=== PATIENT | female | born 1995 | race Caucasian/White ===

== ENCOUNTER 2021-04-05 21:19 | Emergency (ER) | payer BC ==
--- NOTE | 2021-04-05 21:51 | EDM.PDOC ---
ED HPI GENERAL MEDICAL PROBLEM - General Chief Complaint: Headache Stated Complaint: HEADACHE Time Seen by Provider: 04/05/21 21:25 Source of Information: Reports: Patient History Limitations: Reports: No Limitations - History of Present Illness INITIAL COMMENTS - FREE TEXT/NARRATIVE: 25-year-old female presents to the ED complaining of dizzy lightheadedness with headache. Patient had a gradual onset starting on Tuesday of a headache located in the frontal region, originally center of the forehead today slightly left of midline above the left eye. Patient states the pain was off and on over the last 3 days. Patient describes the pain as "somebody taking my head and slamming a door into it ". Nothing is been palliative including ibuprofen. 6/10 on the pain scale. Patient describes the dizziness lightheadedness as if she was drunk. With a touch of vertigo on Tuesday. Patient positive for: Increased life stress including possible new job possible move. Patient denies: Chest pain, shortness of breath, near syncope/syncope, constipation/diarrhea, black tarry stool, blood on the stool, changes to urine color smell frequency, blurred vision, difficulty swallowing trauma, red swollen joints, or weakness. Patient is on her last day of her cycle denies any chance of . Head Pain Score (Numeric/FACES): 6 - Related Data Allergies Allergy/AdvReac Type Severity Reaction Status Date / Time No Known Allergies Allergy Verified 04/05/21 21:20 Home Meds: Home Meds NK [No Known Home Meds] 04/05/21 [History] Past Medical History - Past Health History Medical/Surgical History: Denies Medical/Surgical History ED ROS GENERAL - Review of Systems Review Of Systems: Comprehensive ROS is negative, except as noted in HPI. ED EXAM, GENERAL - Physical Exam Exam: See Below Free Text/Narrative:: 25-year-old female presents the ED complaining of headache and dizziness lightheadedness. ABC intact. No apparent distress. No obvious trauma. Speaking in full sentences. Alert and oriented x3, GCS 456. Exam Limited By: No Limitations General Appearance: Alert, WD/WN, No Apparent Distress Eye Exam: Bilateral Eye: EOMI, PERRL (Knock his boat out) Ears: Normal External Exam, Normal Canal, Hearing Grossly Normal, Normal TMs Ear Exam: Bilateral Ear: Auricle Normal, Canal Normal, TM normal Nose: Normal Inspection, Normal Mucosa, No Blood Throat/Mouth: Normal Inspection, Normal Lips, Normal Teeth, Normal Gums, Normal Oropharynx, Normal Voice, No Airway Compromise Head: Atraumatic, Normocephalic. No: Facial Swelling, Facial Tenderness, Sinus Tenderness Neck: Normal Inspection, Supple, Non-Tender, Full Range of Motion. No: Lymphadenopathy (R), Lymphadenopathy (L), Thyromegaly Respiratory/Chest: No Respiratory Distress, Lungs Clear, Normal Breath Sounds, No Accessory Muscle Use, Chest Non-Tender Cardiovascular: Normal Peripheral Pulses, Regular Rate, Rhythm, No Edema, No Gallop, No JVD, No Murmur, No Rub Peripheral Pulses: 2+: Posterior Tibial (L), Posterior Tibial (R), 3+: Radial (L), Radial (R) GI/Abdominal: Normal Bowel Sounds, Soft, Non-Tender, No Organomegaly, No Distention, No Abnormal Bruit, No Mass (Female) Exam: Deferred Rectal (Female) Exam: Deferred Back Exam: Normal Inspection, Full Range of Motion. No: CVA Tenderness (R), CVA Tenderness (L), Muscle Spasm, Paraspinal Tenderness, Vertebral Tenderness Extremities: Normal Inspection, Normal Range of Motion, Non-Tender, Normal Capillary Refill, No Pedal Edema Neurological: Alert, Oriented, CN II-XII Intact, Normal Cognition, Normal Gait, Normal Reflexes, No Motor/Sensory Deficits, Other (DTRs within normal limits) Psychiatric: Normal Affect, Normal Mood Skin Exam: Warm, Dry, Intact, Normal Color, No Rash Lymphatic: No Adenopathy #1 Interpretation EKG Date: 04/05/21 (Normal sinus rhythm, without ectopy, no ST elevation or depression, this is not a STEMI, biphasic T waves in V1, flat to slightly inverted T waves in lead III bundle branch block and aVL) Course - Vital Signs Last Recorded V/S: Last Vital Signs Temp 98.7 F 04/05/21 21:19 Pulse 107 H 04/05/21 21:19 Resp 16 04/05/21 21:19 BP 153/103 H 04/05/21 21:19 Pulse Ox 99 04/05/21 21:19 - Orders/Labs/Meds Orders: Active Orders 24 hr Category Date Time Status Isolation [COMM] Routine Oth 04/05/21 21:32 Active Peripheral IV Insertion Adult [OM.PC] Routine Oth 04/05/21 21:58 Ordered EKG 12 Lead [EK] Routine Ther 04/05/21 21:42 Ordered Labs: Laboratory Tests 04/05/21 04/05/21 04/05/21 Range/Units 21:23 21:23 21:23 WBC 7.9 (4.0-11.0) K/uL RBC 4.92 (3.80-5.80) M/uL Hgb 13.3 (11.5-16.5) g/dL Hct 39.7 (37.0-47.0) % MCV 81 (76-96) fL MCH 27.0 (27.0-32.0) pg MCHC 33.5 (31.0-35.0) g/dL RDW 13.3 (11.0-16.0) % Plt Count 332 (150-500) K/uL MPV 10.4 H (6.0-10.0) fL Neut % (Auto) 57.2 (45.0-70.0) % Lymph % (Auto) 32.2 (20.0-40.0) % Dickson % (Auto) 9.0 (3.0-10.0) % Eos % (Auto) 1.1 (1.0-5.0) % Baso % (Auto) 0.5 (0.0-0.5) % Neut # (Auto) 4.54 (2.00-7.50) K/uL Lymph # (Auto) 2.55 (1.50-4.00) K/uL Dickson # (Auto) 0.71 (0.20-0.80) K/uL Eos # (Auto) 0.09 (0.04-0.40) K/uL Baso # (Auto) 0.04 (0.02-0.10) K/uL Sodium 141 (136-145) mmol/L Potassium 3.8 (3.5-5.1) mmol/L Chloride 103 (98-107) mmol/L Carbon Dioxide 28.6 (21.0-32.0) mmol/L Anion Gap 13.2 (5.0-15.0) mmol/L BUN 11 (8-26) mg/dL Creatinine 0.76 (0.55-1.02) mg/dL Est Cr Clr Drug Dosing 111.95 mL/min Estimated GFR (MDRD) > 60 (>60) MLS/MIN BUN/Creatinine Ratio 14.5 (6-25) Glucose 96 (74-100) mg/dL Calcium 9.2 (8.5-10.1) mg/dL TSH, Ultra Sensitive (0.358-3.740) uIU/mL Urine HCG, Qual (NEGATIVE) SARS CoV-2 RNA Rapid MANJIT Negative 04/05/21 04/05/21 Range/Units 21:23 22:00 WBC (4.0-11.0) K/uL RBC (3.80-5.80) M/uL Hgb (11.5-16.5) g/dL Hct (37.0-47.0) % MCV (76-96) fL MCH (27.0-32.0) pg MCHC (31.0-35.0) g/dL RDW (11.0-16.0) % Plt Count (150-500) K/uL MPV (6.0-10.0) fL Neut % (Auto) (45.0-70.0) % Lymph % (Auto) (20.0-40.0) % Dickson % (Auto) (3.0-10.0) % Eos % (Auto) (1.0-5.0) % Baso % (Auto) (0.0-0.5) % Neut # (Auto) (2.00-7.50) K/uL Lymph # (Auto) (1.50-4.00) K/uL Dickson # (Auto) (0.20-0.80) K/uL Eos # (Auto) (0.04-0.40) K/uL Baso # (Auto) (0.02-0.10) K/uL Sodium (136-145) mmol/L Potassium (3.5-5.1) mmol/L Chloride (98-107) mmol/L Carbon Dioxide (21.0-32.0) mmol/L Anion Gap (5.0-15.0) mmol/L BUN (8-26) mg/dL Creatinine (0.55-1.02) mg/dL Est Cr Clr Drug Dosing mL/min Estimated GFR (MDRD) (>60) MLS/MIN BUN/Creatinine Ratio (6-25) Glucose (74-100) mg/dL Calcium (8.5-10.1) mg/dL TSH, Ultra Sensitive 0.926 (0.358-3.740) uIU/mL Urine HCG, Qual Negative (NEGATIVE) SARS CoV-2 RNA Rapid MANJIT Meds: Medications Discontinued Medications Generic Name Dose Route Start Last Admin Trade Name Freq PRN Reason Stop Dose Admin Diphenhydramine HCl Confirm 04/05/21 23:17 04/05/21 23:14 Diphenhydramine 50 Mg/Ml Sdv Administered 04/05/21 23:18 Not Given Dose 50 mg .ROUTE .STK-MED ONE Diphenhydramine HCl 25 mg 04/05/21 23:13 04/05/21 23:15 Diphenhydramine 50 Mg/Ml Sdv IVPUSH 04/05/21 23:14 25 mg ONETIME ONE Administration Lactated Ringer's 1,000 mls @ 999 mls/hr 04/05/21 21:58 04/05/21 22:18 Ringers, Lactated IV 04/05/21 22:58 999 mls/hr BOLUS ONE Administration Ketorolac Tromethamine 30 mg 04/05/21 21:59 04/05/21 22:18 Ketorolac 30 Mg/Ml Sdv IVPUSH 04/05/21 22:00 30 mg ONETIME ONE Administration Ketorolac Tromethamine Confirm 04/05/21 22:26 04/05/21 22:39 Ketorolac 30 Mg/Ml Sdv Administered 04/05/21 22:27 Not Given Dose 30 mg .ROUTE .STK-MED ONE Prochlorperazine Edisylate Confirm 04/05/21 23:17 04/05/21 23:14 Prochlorperazine 10 Mg/2 Ml Sdv Administered 04/05/21 23:18 Not Given Dose 10 mg .ROUTE .STK-MED ONE Prochlorperazine Edisylate 10 mg 04/05/21 23:16 04/05/21 23:20 Prochlorperazine 10 Mg/2 Ml Sdv IVPUSH 04/05/21 23:17 10 mg ONETIME ONE Administration Sodium Chloride 10 ml 04/05/21 21:58 Sodium Chloride 0.9% 10 Ml Syringe FLUSH ASDIRECTED PRN Keep Vein Open Departure - Departure Time of Disposition: 23:45 Disposition: Home, Self-Care 01 Condition: Good Clinical Impression: Migraine, Tension-type headache - Discharge Information *PRESCRIPTION DRUG MONITORING PROGRAM REVIEWED*: No *COPY OF PRESCRIPTION DRUG MONITORING REPORT IN PATIENT DEXTER: No (Finger or IO no laxity needed the point of care carbon monoxide nobody did the other deformity) Instructions: Migraine Headache, [id number], Dehydration, Adult, [id number] Referrals: PCP,None [Primary Care Provider] - Forms: ED Department Discharge Additional Instructions: Stay hydrated with water or Pedialyte. Take Tylenol as needed for headache discomfort. Return to the emergency room if symptoms progress and follow up with primary care. Sepsis Event Note (ED) - Evaluation Sepsis Screening Result: No Definite Risk - Focused Exam Vital Signs: Vital Signs Temp Pulse Resp BP Pulse Ox 04/05/21 21:19 98.7 F 107 H 16 153/103 H 99 - Problem List & Annotations (1) Migraine SNOMED Code(s): 17396104 Code(s): G43.909 - MIGRAINE, UNSP, NOT INTRACTABLE, WITHOUT STATUS MIGRAINOSUS Status: Acute (2) Tension-type headache SNOMED Code(s): 725453815 Code(s): G44.209 - TENSION-TYPE HEADACHE, UNSPECIFIED, NOT INTRACTABLE Status: Acute - Problem List Review Problem List Initiated/Reviewed/Updated: Yes - My Orders Last 24 Hours: My Active Orders 04/05/21 21:32 Isolation [COMM] Routine 04/05/21 21:42 EKG 12 Lead [EK] Routine 04/05/21 21:58 Peripheral IV Insertion Adult [OM.PC] Routine - Assessment/Plan Last 24 Hours: My Active Orders 04/05/21 21:32 Isolation [COMM] Routine 04/05/21 21:42 EKG 12 Lead [EK] Routine 04/05/21 21:58 Peripheral IV Insertion Adult [OM.PC] Routine Assessment:: 1. Headache 2. Vertigo/dizzy lightheaded 25-year-old female who presents with a headache. I considered a broad differential diagnosis for this patient including tension, migraine, analgesic rebound, and occipital neuralgia, etc. Other less common but serious causes considered included meningitis, encephalitis, subarachnoid bleed, stroke, tumor, etc. Patient has no signs of serious headache etiologies at this point. No advanced imaging is indicated, nor is a CT/lumbar puncture for a subarachnoid hemorrhage. Patient's questions were answered and they feel improved after the above interventions that were done in the emergency department. Supportive outpatient management is therefore indicated. Headache precautions were given for home. Patient was also evaluated for dizziness as detailed above. Differential diagnosis for dizziness is broad and includes common etiologies such as Mnire's disease, labyrinthitis, benign positional vertigo. Otitis media. More serious etiologies considered include central etiology such as a tumor, intracranial bleed, dissection, ischemic cerebral vascular accident. The history, physical exam including detailed neurological exam and work-up in the ED suggest a benign vertigo. Patient feels improved after interventions that were noted above. Further outpatient management is indicated with vertigo medications. No indication for advanced imaging at this point (CT/MRI) as there are no definite signs of central and/or concerning etiology for the vertigo. Vertigo precautions were given for home. -Patient and/or payroll representative understood and agreed to treatment plan. -All questions were answered to the patient's satisfaction. -Patient is discharged in stable condition. Patient to return to the ED if symptoms increase/return, becomes constant, nausea vomiting, lethargy, confusion, neurologic symptoms. Follow-up with primary care provider within 1 week. Plan: ABC, history, exam, labs, EKG, Toradol, IV, Ringer's 1000 cc, carbon monoxide sensor, consult with Enmanuel Lynch, patient education/shared decision making (regarding utility of head CT versus radiation and young age), Compazine, Benadryl, patient to follow-up with primary care provider, discharged in stable condition Headacheimproved with ketorolac administration. Dizziness/vertigonot much change with administration of Compazine and Benadryl, no neurological deficits no neurological signs, no cerebellar signs. We will reach out to primary care provider to set up appointment this week at the [facility] with primary care provider.
[2021-04-05] MEDS ORDERED: Sodium Chloride 0.9% 10 ML Syringe FLUSH PRN (21:58)
[2021-04-05] MEDS: Lactated Ringers 1,000 ML IV ONE (22:18)
[2021-04-05] MEDS: Ketorolac 30 MG/ML SDV IVPUSH ONE (22:18)
[2021-04-05] MEDS: Ketorolac 30 MG/ML SDV ONE (22:39)
[2021-04-05] MEDS: diphenhydrAMINE 50 MG/ML SDV ONE (23:14)
[2021-04-05] MEDS ORDERED: Prochlorperazine 10 MG in Sodium Chloride 0.9% 50 ML IV ONE (23:14)
[2021-04-05] MEDS: Prochlorperazine 10 MG/2 ML SDV ONE (23:14)
[2021-04-05] MEDS: diphenhydrAMINE 50 MG/ML SDV IVPUSH ONE (23:15)
[2021-04-05] MEDS: Prochlorperazine 10 MG/2 ML SDV IVPUSH ONE (23:20)
== END 2021-04-05 23:40 | disposition home or self-care (01) ==
LOC: LB.ED 21:19
DX: G43.909 Migraine, unspecified, not intractable, without status migrainosus (principal); G44.209 Tension-type headache, unspecified, not intractable; R42 Dizziness and giddiness
CPT/HCPCS: 36415; 80048; 81025; 84443; 85025; 87635; 87804; 93005; 96374; 96375; 99284; J0780; J1200; J1885; J7120; U0002

== ENCOUNTER 2023-10-02 15:18 | Emergency (ER) | payer BC ==
[2023-10-02] MEDS: Ketorolac 30 MG/ML SDV IVPUSH ONE (16:05)
[2023-10-02] MEDS: Sodium Chloride 0.9% 1,000 ML IV ONE (16:10)
[2023-10-02] MEDS ORDERED: Sodium Chloride 0.9% 10 ML Syringe FLUSH PRN (16:11)
[2023-10-02 16:27] LABS: BASOPHILS ABSOLUTE AUTO 0.04 K/uL (0.02-0.10); BASOPHILS PERCENT AUTO 0.4 % (0.0-0.5); EOSINOPHILS ABSOLUTE AUTO 0.14 K/uL (0.04-0.40); EOSINOPHILS PERCENT AUTO 1.5 % (1.0-5.0); HEMATOCRIT 41.6 % (37.0-47.0); HEMOGLOBIN 13.6 g/dL (11.5-16.5); LYMPHOCYTES ABSOLUTE AUTO 2.44 K/uL (1.50-4.00); LYMPHOCYTES PERCENT AUTO 26.5 % (20.0-40.0); MEAN CORPUSCULAR HEMOGLOBIN 26.8 pg (27.0-32.0); MEAN CORPUSCULAR HGB CONC 32.7 g/dL (31.0-35.0); MEAN CORPUSCULAR VOLUME 82 fL (76-96); MEAN PLATELET VOLUME 10.6 fL (6.0-10.0); MONOCYTES ABSOLUTE AUTO 0.85 K/uL (0.20-0.80); MONOCYTES PERCENT AUTO 9.2 % (3.0-10.0); NEUTROPHILS ABSOLUTE AUTO 5.74 K/uL (2.00-7.50); NEUTROPHILS PERCENT AUTO 62.4 % (45.0-70.0); PLATELET COUNT,PLT 274 K/uL (150-500); RED BLOOD CELL COUNT 5.07 M/uL (3.80-5.80); RED CELL DISTRIBUTION WIDTH 13.5 % (11.0-16.0); WHITE BLOOD CELL COUNT,WBC 9.2 K/uL (4.0-11.0)
[2023-10-02 16:29] LABS: APPEARANCE,URINE CLEAR (CLEAR); BILIRUBIN,URINE NEGATIVE (NEGATIVE); COLOR,URINE YELLOW; GLUCOSE,URINE NEGATIVE (NEGATIVE); KETONES,URINE NEGATIVE (NEGATIVE); LEUKOCYTE ESTERASE,URINE NEGATIVE (NEGATIVE); NITRITE,URINE NEGATIVE (NEGATIVE); OCCULT BLOOD,URINE TRACE-INTACT (NEGATIVE); PROTEIN,URINE NEGATIVE (NEGATIVE); UROBILINOGEN,URINE 0.2 E.U./dL (0.2-1.0)
[2023-10-02 16:46] LABS: RBC,URINE 0-5 /HPF; SQUAMOUS EPITHELIAL CELLS,UR FEW /HPF
[2023-10-02 16:48] LABS: AMORPHOUS SEDIMENT,URINE FEW /HPF
[2023-10-02 16:55] LABS: ALBUMIN 3.9 g/dL (3.4-5.0); ANION GAP 12.6 mmol/L (5.0-15.0); BILIRUBIN TOTAL 0.2 mg/dL (0.0-1.0); BUN/CREATININE RATIO 11.2 (6-25); CALCIUM 8.9 mg/dL (8.5-10.1); CARBON DIOXIDE,CO2 27.8 mmol/L (21.0-32.0); CREATININE 0.89 mg/dL (0.55-1.02); EST CRCL DRUG DOSING (CG) 93.97 mL/min; POTASSIUM,K 3.4 mmol/L (3.5-5.1); PROTEIN TOTAL,TP 7.9 g/dL (6.4-8.2)
[2023-10-02] MEDS: Polyethylene Glycol 3350 Powder 17 GM Packet PO ONE (18:00)
[2023-10-02] MEDS: Polyethylene Glycol 3350 Powder 17 GM Packet ONE (18:28)
[2023-10-02 19:47] VITALS: BP 116/75; PULSE 75
== END 2023-10-02 18:12 | disposition home or self-care (01) ==
LOC: LB.ED 15:18
DX: R10.32 Left lower quadrant pain (principal)
CPT/HCPCS: 36415; 74176; 80053; 81001; 81025; 85025; 96374; 99284; A9270; J1885; J7030